=== PATIENT | male | born 2000 | race Asian ===

== ENCOUNTER 2023-12-16 20:50 | Emergency (ER) | payer OTHER, SELFPAY ==
--- NOTE | ~2023-12-16 | CT_ITS ---
EXAMINATION: CT brain wo con DATE: 12/16/2023 21:37 INDICATION: fall . TECHNIQUE: Computed tomography (CT) of the head was performed without intravenous contrast. The mA wa s adjusted according to patient size. Iterative reconstruction technique was employed. The dose-lengt h product was 605.33 mGy-cm. COMPARISON: None. FINDINGS: No acute intracranial hemorrhage or extra-axial fluid collection. No hydrocephalus, mass, or herniation. No acute ischemic infarct. Unremarkable dural venous sinus attenuation. No acute osseous abnormality. The aerated spaces are clear. IMPRESSION: No acute intracranial process. Reviewed, dictated and finalized at location K. [employer]
--- NOTE | ~2023-12-16 | XR_ITS ---
EXAM: XR shoulder RT min 2V DATE: 12/16/2023 21:46 HISTORY: fall . COMPARISON: None available. FINDINGS: Normal mineralization. No fracture or dislocation. No lytic or blastic lesion. Joint space s are maintained. No erosion or periosteal change. Soft tissues within normal limits. IMPRESSION: No acute osseous finding the right shoulder. Reviewed, dictated and finalized at location K. ENSATION DIRECTOR
--- NOTE | ~2023-12-16 | CT_ITS ---
EXAMINATION: CT cervical spine wo con DATE: 12/16/2023 21:30 INDICATION: fall TECHNIQUE: Computed tomography (CT) of the cervical spine was performed without intravenous contrast. Automated exposure control and iterative reconstruction technique were employed. The dose-length pro duct was 483.19 mGy-cm. COMPARISON: None. FINDINGS: Vertebral Body Alignment: Intact. Craniocervical and atlantoaxial alignment: No significant degenerative change. Alignment intact. Osseous structures/fracture: No evidence of a lytic or blastic process in the visualized spine. No e vidence of acute fracture. Cervical soft tissues: The paraspinal soft tissues planes are maintained. Degenerative changes: No significant degenerative changes. IMPRESSION: No acute fracture or traumatic malalignment in the cervical spine. Reviewed, dictated and finalized at location K. ICAL OB
--- NOTE | ~2023-12-16 | XR_ITS ---
EXAMINATION: XR chest 1V Exam Date/Time: 12/16/2023 21:38 DIE [employer] HISTORY: fall Comparison: None. RESULT: Lines, tubes, and devices: None. Lungs and pleura: Clear. Cardiomediastinal silhouette: Stable. Other: No acute osseous or upper abdominal finding. IMPRESSION: No acute cardiopulmonary process. Reviewed, dictated and finalized at location K. TROUBLE SHOOTER
[2023-12-16 20:56] VITALS: BP 146/96; PULSE 97; RESP 18; TEMP 36.7; O2SAT 99
--- NOTE | 2023-12-17 01:38 | ED.GENADULT ---
HPI - General Adult General Chief complaint: Fall Stated complaint: fall Time Seen by Provider: 12/17/23 01:29 History of Present Illness HPI narrative: This is a 23-year-old male presenting after a fall. He was @ [facility] eating chicken when he slipped and fell onto his right hip. He also put his arm down to catch himself and has some pain in his right shoulder. Is also complaining of some neck pain although he did not strike his head. No chest pain difficulty breathing or neurologic deficits. No use of blood thinners. Related Data Allergies Allergy/AdvReac Type Severity Reaction Status Date / Time No Known Allergies Allergy Verified 12/17/23 01:54 Exam Narrative: APPEARANCE: No apparent distress. Head: atraumatic. EYES: EOMI, NOSE: Atraumatic NECK: No midline cervical tenderness, no pain or clicking with range of motion RESPIRATORY: No increased rate of breathing CARDIOVASCULAR: RRR, ABDOMINAL: Non-distended MUSCULOSKELETAl: focal exam of the right upper extremity revealed some point tenderness over the lateral shoulder. Neurovascularly intact. No deformity or swelling. NEURO: Alert. Moving 4/4 extremities SKIN:: Warm, dry. Normal color PSYCHIATRIC: Normal affect Course Vital Signs Vital signs: Vital Signs Temperature 98.1 F 12/16/23 20:56 Pulse Rate 97 12/16/23 20:56 Respiratory Rate 18 12/16/23 20:56 Blood Pressure 146/96 H 12/16/23 20:56 Pulse Oximetry 99 12/16/23 20:56 Oxygen Delivery Room Air 12/16/23 20:56 Temperature 98.1 F 12/16/23 20:56 Pulse Rate 97 12/16/23 20:56 Respiratory Rate 18 12/16/23 20:56 Blood Pressure 146/96 H 12/16/23 20:56 Pulse Oximetry 99 12/16/23 20:56 Oxygen Delivery Room Air 12/16/23 20:56 Medical Decision Making [facility] Narrative Medical decision making narrative: -Course: 23-year-old male presenting with a ground level fall. Multiple imaging studies ordered from triage which were negative. Physical exam is unremarkable. Patient discharged on NSAIDs with muscle relaxants -DDX includes but is not limited to: muscle strain, bruising -Social determinants of health: patient recently graduated from college, master's in industrial injury -Independent termination studies:CT head and C-spine negative. Chest x-ray and shoulder x-ray -Interventions: Motrin Tylenol Robaxin -Shared decision making / Disposition: discharged -RX Motrin Tylenol Robaxin Vital Signs Vital Signs: Vital Signs Temperature 98.1 F 12/16/23 20:56 Pulse Rate 97 12/16/23 20:56 Respiratory Rate 18 12/16/23 20:56 Blood Pressure 146/96 H 12/16/23 20:56 Pulse Oximetry 99 12/16/23 20:56 Oxygen Delivery Room Air 12/16/23 20:56 Temperature 98.1 F 12/16/23 20:56 Pulse Rate 97 12/16/23 20:56 Respiratory Rate 18 12/16/23 20:56 Blood Pressure 146/96 H 12/16/23 20:56 Pulse Oximetry 99 12/16/23 20:56 Oxygen Delivery Room Air 12/16/23 20:56 Discharge Plan Discharge Clinical Impression: Fall Patient Disposition: Home, Self-Care Condition: Stable Instructions: Contusion in Adults (ED), Abrasion (ED) Additional Instructions: take Motrin Tylenol and Robaxin for pain control. Prescriptions: New ibuprofen 800 mg tablet 800 mg PO TID PRN (Reason: pain) 7 Days Qty: 21 0RF acetaminophen 500 mg tablet 1,000 mg PO TID PRN (Reason: kartik) 7 Days Qty: 42 0RF methocarbamol 750 mg tablet 1,500 mg PO TID Qty: 42 0RF Follow-up/Referrals: PHYSICIAN NOT ON STAFF,NONSTAFF [Non-Staff] -
[2023-12-17] MEDS: ACETAMINOPHEN 500 MG TABLET 1000 MG PO (01:51)
[2023-12-17] MEDS: IBUPROFEN 400 MG TABLET 800 MG PO (01:52)
[2023-12-17] MEDS: methocarbamoL 750 MG TABLET 1500 MG PO (01:52)
[2023-12-17 02:24] VITALS: BP 131/96; PULSE 84; RESP 14; O2SAT 100
== END 2023-12-17 02:29 | disposition home or self-care (01) ==
PROVIDERS: Emergency Provider Emergency Medicine
DX: M25.511 Pain in right shoulder (principal); W01.0XXA Fall on same level from slipping, tripping and stumbling without subsequent striking against object, initial encounter; Y92.511 Restaurant or cafe as the place of occurrence of the external cause
CPT/HCPCS: 70450; 71045; 72125; 73030; 99284; A9270